=== PATIENT | female | born 1985 | race Caucasian/White ===

== ENCOUNTER → 2017-01-27 | Outpatient (CLI) | payer OTHER ==
[~2017-01-27] MED LIST: ACHD5005 PO; CPR500T PO; CYCL10TA9 PO; DCS100C PO; HORMONE; HYDR-34 PO; HYOS0.1216 PO; IBUP-15 PO; LEUP7.5D2 IM; MTR250T PO; NAPR-243 PO; NF-ESTR1.5 PO; NORE5TAB5 PO; PEG250PW PO; TRM50T PO
--- NOTE | 2017-01-27 19:53 | Diagnostic Imaging Report ---
Digital mammogram bilateral diagnostic with tomosynthesis. INDICATION: Right breast lump. The current study was also evaluated with a Computer Aided Detection (CAD) system. This is the patient's baseline study. At this time, she does complain of a lump in the upper-outer aspect of the right breast. FINDINGS: A marker is placed in the area of concern. There is no primary or secondary sign of malignancy in this area. Even so, I would recommend that an ultrasound of this area of the breast be performed for further study. There are scattered fibroglandular densities in both breasts which could obscure a lesion. There is no primary or secondary sign of malignancy noted. The tomographic views also fail to show any sign of malignancy. IMPRESSION: There is no evidence of malignancy. In particular, there is no abnormality in the area of the patient's palpable mass in the upper-outer aspect of the right breast. Ultrasound will be recommended for further study. ACR BI-RADS Category 0: Incomplete. (Needs additional imaging evaluation). Result letter will be mailed to the patient. Note: At least 10% of breast cancer is not imaged by mammography. Dictated by: Dictated on workstation # [id number]
--- NOTE | 2017-01-27 20:11 | Diagnostic Imaging Report ---
INDICATION: Right breast lump. EXAMINATION: Ultrasound of the right breast. FINDINGS: By history, the patient had a palpable abnormality in the upper outer aspect of the right breast. The diagnostic mammogram performed earlier today failed to show any sign of malignancy in this area. On this study, there is no discrete solid or cystic mass. I suspect that the palpable abnormality may be secondary to fibroglandular tissue alone. However, if clinical concern regarding an underlying abnormality persists, then biopsy should still be considered. IMPRESSION: There is no evidence for malignancy or for a cyst. Recommendations as above. ACR BI-RADS Category 1: Negative. Result letter will be mailed to the patient. Note: At least 10% of breast cancer is not imaged by mammography. Dictated by: Dictated on workstation # [id number]
== END ==
LOC: RAD 07:53
PROVIDERS: ATTEND Obstetrics & Gynecology
DX: N63 Unspecified lump in breast (principal)
CPT/HCPCS: 77066

== ENCOUNTER → 2018-09-14 | Outpatient (CLI) | payer OTHER ==
--- NOTE | 2018-09-14 18:08 | Diagnostic Imaging Report ---
PROCEDURE: CT urinary tract, rule out kidney stone. TECHNIQUE: Multiple contiguous axial images were obtained through the abdomen and pelvis without the use of intravenous contrast. Auto Exposure Controls were utilized during the CT exam to meet ALARA standards for radiation dose reduction. INDICATION: Hematuria, right flank pain, right kidney stone, previous hysterectomy, cholecystectomy appendectomy and . COMPARISON STUDY: CT of chest, abdomen and pelvis from 2015. FINDINGS: The lungs are clear. The gallbladder is absent. The liver, spleen, pancreas and adrenal glands appear normal. 1-2 mm calculi is present in the upper pole of the left kidney. 3 mm calculi is present in the mid upper pole of the right kidney. No hydronephrosis or inflammation is present. No calculi are present in the ureters or urinary bladder. There is no inflammation of the kidneys. Bowel loops demonstrate mildly increased stool load. No obstruction or inflammatory changes are present. The osseous structures are normal. IMPRESSION: 1. There is an increased stool load, possible constipation. 2. Small bilateral renal calculi are present without inflammation or obstruction. Dictated by: Dictated on workstation # [id number]
== END ==
LOC: RAD 17:22
PROVIDERS: ATTEND Physician Assistant
DX: N20.0 Calculus of kidney (principal); Z90.710 Acquired absence of both cervix and uterus; Z90.49 Acquired absence of other specified parts of digestive tract
CPT/HCPCS: 74176

== ENCOUNTER 2020-04-04 14:30 | Emergency (ER) | payer OTHER ==
[~2020-04-04] VITALS: Ht 152.4 cm; Wt 58.9 kg
[2020-04-04 16:24] LABS: BASOPHILS % (AUTO) 0 % (0-10); EOSINOPHILS # (AUTO) 0.3 10^3/uL (0.0-0.3); EOSINOPHILS % (AUTO) 4 % (0-10); HEMATOCRIT 38 % (35-52); HEMOGLOBIN 12.2 g/dL (11.5-16.0); LYMPHOCYTES # (AUTO) 2.3 10^3/uL (1.0-4.0); LYMPHOCYTES % (AUTO) 33 % (12-44); MEAN CORPUSCULAR HEMOGLOBIN 28 pg (25-34); MEAN CORPUSCULAR HGB CONC 32 g/dL (32-36); MEAN CORPUSCULAR VOLUME 87 fL (80-99); MEAN PLATELET VOLUME 10.5 fL (9.0-12.2); MONOCYTES # (AUTO) 0.5 10^3/uL (0.0-1.0); MONOCYTES % (AUTO) 7 % (0-12); NEUTROPHILS # (AUTO) 3.7 10^3/uL (1.8-7.8); NEUTROPHILS % (AUTO) 53 % (42-75); PLATELET COUNT 269 10^3/uL (130-400)
[2020-04-04 16:29] LABS: CHLORIDE 105 MMOL/L (98-107); POTASSIUM 3.7 MMOL/L (3.6-5.0); PROTHROMBIN TIME PATIENT 13.1 SEC (12.2-14.7); SODIUM 137 MMOL/L (135-145)
[2020-04-04 16:30] LABS: CALCIUM 9.1 MG/DL (8.5-10.1)
[2020-04-04 16:31] LABS: GLUCOSE 93 MG/DL (70-105)
[2020-04-04 16:32] LABS: TOTAL PROTEIN 6.9 GM/DL (6.4-8.2)
[2020-04-04 16:33] LABS: CARBON DIOXIDE 23 MMOL/L (21-32)
[2020-04-04 16:34] LABS: BILIRUBIN,TOTAL 0.3 MG/DL (0.1-1.0)
[2020-04-04 16:35] LABS: ALKALINE PHOSPHATASE 67 U/L (40-136); CREATININE SERUM 0.77 MG/DL (0.60-1.30); GFR ESTIMATED > 60
[2020-04-04 16:36] LABS: BUN/CREATININE RATIO 16
[2020-04-04 16:38] LABS: ALANINE AMINOTRANSFERASE 12 U/L (0-55); MAGNESIUM 2.3 MG/DL (1.6-2.4)
--- NOTE | 2020-04-04 17:11 | Diagnostic Imaging Report ---
EXAM: Chest 1 view, AP/PA only. INDICATION: Chest pain. COMPARISON: CT chest 04/06/2015. FINDINGS: Normal heart size and central pulmonary vascularity. Calcified granulomas in both lungs. No new focal pulmonary opacity. No pleural effusion or pneumothorax. No acute osseous finding. IMPRESSION: No acute cardiopulmonary finding. Dictated by: Dictated on workstation # [id number]
--- NOTE | 2020-04-04 17:37 | ED General ---
General Chief Complaint: Respiratory Problems Stated Complaint: SOA Nursing Triage Note: PT AMB TO ROOM 05. REPORTS SOA AND DIZZINESS X'S 4 WEEK. PT WAS POSITIVE COVID 03/09/2020. Nursing Sepsis Screen: No Definite Risk Source of Information: Patient Exam Limitations: No Limitations History of Present Illness Date Seen by Provider: Apr 04, 2020 Time Seen by Provider: 15:25 Initial Comments This 34-year-old woman presents to the emergency room with complaints of shortness of breath, dizziness, palpitations, subtle chest pain, headache, and f atigue. She has been experiencing some combination of these symptoms since being diagnosed with COVID-19 about 4 weeks ago. Symptoms have not dissipated as she believes they should. She has had intermittent fever up until a few days ago. Vital signs are unremarkable. Allergies and Home Medications Allergies Coded Allergies: Aren Known Allergies (Verified Allergy, Unknown, 05/09/06) Home Medications Azithromycin 250 Mg Tablet, 250 MG PO UD TAKE 2 TABLETS ON DAY ONE THEN TAKE 1 TABLET DAILY FOR FOUR MORE DAYS Prescribed by: JE LOPES on 04/04/20 1738 Cyclobenzaprine HCl 10 Mg Tablet, 10 MG PO Q8H PRN for SPASMS Prescribed by: GLADYS CHÁVEZ on 04/06/15 2249 Estropipate 1.5 Mg Tab, 1.5 TAB PO DAILY, (Reported) Patient Home Medication List Home Medication List Reviewed: Yes Review of Systems Review of Systems Constitutional: see HPI EENTM: no symptoms reported Respiratory: see HPI Cardiovascular: see HPI Gastrointestinal: no symptoms reported Genitourinary: no symptoms reported : No Musculoskeletal: no symptoms reported Skin: no symptoms reported Psychiatric/Neurological: See HPI Hematologic/Lymphatic: No Symptoms Reported Immunological/Allergic: no symptoms reported Past Prrfiok-Pmgovp-Owpaav Hx Past Med/Social Hx: Reviewed Nursing Past Med/Soc Hx Patient Social History Alcohol Use: Denies Use Recreational Drug Use: No Smoking Status: Never a Smoker Recent Foreign Travel: No Contact w/Someone Who Travel: No Recent Infectious Disease Expo: No Recent Hopitalizations: Yes (labor and delivery, gallbladder surgery) Seasonal Allergies Seasonal Allergies: No Past Medical History Surgeries: Yes Appendectomy, Section, Gallbladder, Hysterectomy Respiratory: No Cardiac: No Neurological: Yes Headaches /Migraines : No Reproductive Disorders: Yes (ENDOMETROSIS) Female Reproductive Disorders: Endometriosis Sexually Transmitted Disease: No Gastrointestinal: No Musculoskeletal: No Endocrine: No Cancer: No Psychosocial: No Integumentary: No Blood Disorders: No Family Medical History No Pertinent Family Hx Physical Exam Vital Signs Vital Signs - First Documented 04/04/20 15:23 Temp 36.2 Pulse 90 Resp 24 B/P (MAP) 111/86 (94) Pulse Ox 100 O2 Delivery Room Air Capillary Refill : Less Than 3 Seconds Height, Weight, BMI Height: 5'2" Weight: 120lbs. oz. 54.200825vv; 25.00 BMI Method:Estimated General Appearance: WD/WN, Mild Distress (dyspnea) HEENT: PERRL/EOMI, Normal ENT Inspection, Pharynx Normal Neck: Normal Inspection Respiratory: Lungs Clear, No Accessory Muscle Use, No Respiratory Distress, Other (dyspnea and tachypnea) Cardiovascular: Regular Rate, Rhythm, No Edema, No Murmur Gastrointestinal: Normal Bowel Sounds, Non Tender, Soft Extremity: Normal Inspection, No Pedal Edema Neurologic/Psychiatric: Alert, Oriented x3, No Motor/Sensory Deficits, Normal Mood/Affect, lip of shank cutter II-XII Norm as Tested Skin: Normal Color, Warm/Dry Progress/Results/Core Measures Suspected Sepsis Recent Fever Within 48 Hours: No Infection Criteria Present: None New/Unexplained Altered Menta: No Sepsis Screen: No Definite Risk SIRS Temperature: Pulse: 90 Respiratory Rate: 24 Laboratory Tests 04/04/20 15:38: White Blood Count 7.0 Blood Pressure 111 /86 Mean: 94 Laboratory Tests 04/04/20 15:38: Creatinine 0.77, INR Comment 1.0, Platelet Count 269, Total Bilirubin 0.3 Results/Orders Lab Results Laboratory Tests Test 04/04/20 15:38 Range/Units White Blood Count 7.0 4.3-11.0 10^3/uL Red Blood Count 4.42 3.80-5.11 10^6/uL Hemoglobin 12.2 11.5-16.0 g/dL Hematocrit 38 35-52 % Mean Corpuscular Volume 87 80-99 fL Mean Corpuscular Hemoglobin 28 25-34 pg Mean Corpuscular Hemoglobin Concent 32 32-36 g/dL Red Cell Distribution Width 12.7 10.0-14.5 % Platelet Count 269 130-400 10^3/uL Mean Platelet Volume 10.5 9.0-12.2 fL Immature Granulocyte % (Auto) 3 % Neutrophils (%) (Auto) 53 42-75 % Lymphocytes (%) (Auto) 33 12-44 % Monocytes (%) (Auto) 7 0-12 % Eosinophils (%) (Auto) 4 0-10 % Basophils (%) (Auto) 0 0-10 % Neutrophils # (Auto) 3.7 1.8-7.8 10^3/uL Lymphocytes # (Auto) 2.3 1.0-4.0 10^3/uL Monocytes # (Auto) 0.5 0.0-1.0 10^3/uL Eosinophils # (Auto) 0.3 0.0-0.3 10^3/uL Basophils # (Auto) 0.0 0.0-0.1 10^3/uL Immature Granulocyte # (Auto) 0.2 H 0.0-0.1 10^3/uL Prothrombin Time 13.1 12.2-14.7 SEC INR Comment 1.0 0.8-1.4 Activated Partial Thromboplast Time 42 H 24-35 SEC D-Dimer < 0.27 0.00-0.49 UG/ML Sodium Level 137 135-145 MMOL/L Potassium Level 3.7 3.6-5.0 MMOL/L Chloride Level 105 98-107 MMOL/L Carbon Dioxide Level 23 21-32 MMOL/L Anion Gap 9 5-14 MMOL/L Blood Urea Nitrogen 12 7-18 MG/DL Creatinine 0.77 0.60-1.30 MG/DL Estimat Glomerular Filtration Rate > 60 BUN/Creatinine Ratio 16 Glucose Level 93 70-105 MG/DL Calcium Level 9.1 8.5-10.1 MG/DL Corrected Calcium 9.1 8.5-10.1 MG/DL Magnesium Level 2.3 1.6-2.4 MG/DL Total Bilirubin 0.3 0.1-1.0 MG/DL Aspartate Amino Transf (AST/SGOT) 14 5-34 U/L Alanine Aminotransferase (ALT/SGPT) 12 0-55 U/L Alkaline Phosphatase 67 40-136 U/L Lactate Dehydrogenase 135 125-220 U/L Myoglobin 19.0 10.0-92.0 NG/ML Troponin I < 0.028 <0.028 NG/ML C-Reactive Protein High Sensitivity 0.43 0.00-0.50 MG/DL B-Type Natriuretic Peptide 16.9 <100.0 PG/ML Total Protein 6.9 6.4-8.2 GM/DL Albumin 4.0 3.2-4.5 GM/DL Procalcitonin 0.02 <0.10 NG/ML Micro Results Microbiology 04/04/20 Influenza Types A,B Antigen (MARYANA) - Final, Complete My Orders Orders - JE DENSON MD Cbc With Automated Diff (04/04/20 16:13) Magnesium (04/04/20 16:13) Chest 1 View, Ap/Pa Only (04/04/20 16:13) Ekg Tracing (04/04/20 16:13) Comprehensive Metabolic Panel (04/04/20 16:13) Myoglobin Serum (04/04/20 16:13) Protime With Inr (04/04/20 16:13) Partial Thromboplastin Time (04/04/20 16:13) O2 (04/04/20 16:13) Monitor-Rhythm Ecg Trace Only (04/04/20 16:13) Ed Iv/Invasive Line Start (04/04/20 16:13) BNP (04/04/20 16:13) Fibrin Degradation Products (04/04/20 16:13) Troponin I (04/04/20 16:13) Procalcitonin (Pct) (04/04/20 16:13) Hs C Reactive Protein (04/04/20 16:13) LDH (04/04/20 16:13) Influenza A And B Antigens (04/04/20 16:13) Vital Signs/I&O 04/04/20 04/04/20 15:23 18:16 Temp 36.2 37.0 Pulse 90 88 Resp 24 20 B/P (MAP) 111/86 (94) 120/85 Pulse Ox 100 98 O2 Delivery Room Air Room Air Capillary Refill : Less Than 3 Seconds Blood Pressure Mean: 94 Progress Note : Progress Note Workup was unremarkable and patient was given reassurance. As a precaution due to persistent and even perhaps worsening dyspnea, she was prescribed azithromycin. A work note was provided. ECG Initial ECG Impression Date: Apr 04, 2020 Initial ECG Impression Time: 15:25 Initial ECG Rate: 88 Initial ECG Rhythm: Normal Sinus Initial ECG Intervals: Normal Initial ECG Impression: Normal Comment Normal sinus rhythm with no ST elevation or depression. No abnormal intervals or axis deviation. Diagnostic Imaging Diagonstic Imaging: Xray Plain Films/CT/US/NM/MRI: chest Comments chest x-ray viewed by me and report reviewed. See report below: NAME: SHARON SANABRIA REC#: [id number] PT STATUS: REG ER : 1985 PHYSICIAN: JE DENSON MD ADMIT DATE: 04/04/20/ER Draft Date of Exam:04/04/20 CHEST 1 VIEW, AP/PA ONLY EXAM: Chest 1 view, AP/PA only. INDICATION: Chest pain. COMPARISON: CT chest 04/06/2015. FINDINGS: Normal heart size and central pulmonary vascularity. Calcified granulomas in both lungs. No new focal pulmonary opacity. No pleural effusion or pneumothorax. No acute osseous finding. IMPRESSION: No acute cardiopulmonary finding. Dictated on workstation # [id number] Dict: 04/04/20 1707 Trans: 04/04/20 1711 [facility] [id number] Interpreted by: BERYL RAMOS MD Departure Impression Primary Impression: COVID-19 Additional Impressions: Dyspnea Qualified Codes: R06.00 - Dyspnea, unspecified Palpitations Disposition: HOME, SELF-CARE Condition: Stable Departure-Patient Inst. Decision time for Depature: 17:34 Referrals: [facility] (PCP) Primary Care Physician ROSEMARY SHEA (Family) Primary Care Physician Patient Instructions: COVID19 Add. Discharge Instructions: Drink plenty of clear liquids and get plenty of rest. Change positions often to help with your breathing. Complete your antibiotics as prescribed. Follow-up with your primary care provider by phone on Monday. Call or return to the emergency room if you have any further problems or concerns. All discharge instructions reviewed with patient and/or family. Voiced understanding. Scripts Azithromycin (Azithromycin) 250 Mg Tablet 250 MG PO UD, #6 TAB TAKE 2 TABLETS ON DAY ONE THEN TAKE 1 TABLET DAILY FOR FOUR MORE DAYS Prov: JE DENSON MD 04/04/20 Work/School Note: Work Release Form Date Seen in the Emergency Department: Apr 04, 2020 Return to Work: Apr 09, 2020 Other Restrictions Listed Below: Return only if free of fever 72 hours without fever reducing medications. JE DENSON MD Apr 04, 2020 17:37
[2020-04-04] MEDS ORDERED: AZIT250T12 PO (17:38)
[2020-04-04 18:16] VITALS: BP 120/85
== END 2020-04-04 18:16 | disposition home or self-care (01) ==
LOC: EDUNIT# 14:30 → ER 14:32
DX: U07.1 COVID-19 (principal); R06.00 Dyspnea, unspecified; R00.2 Palpitations
CPT/HCPCS: 36415; 71045; 80053; 83615; 83735; 83874; 83880; 84145; 84484; 85025; 85379; 85610; 85730; 86141; 87804; 93005; 93041

== ENCOUNTER 2021-01-06 10:33 | Outpatient (CLI) | payer OTHER ==
[~2021-01-06] VITALS: Ht 152.4 cm; Wt 54.5 kg
[~2021-01-06 10:33] MED LIST changes: +AZIT250T12 PO
[2021-01-06] MEDS ORDERED: ESTR0.62 PO (14:09)
[2021-01-06] MEDS ORDERED: PROP20TA5 PO ×2 (14:09)
[2021-01-06] MEDS ORDERED: AMPH20TA2 PO (14:09)
== END 2021-01-06 15:12 | disposition home or self-care (01) ==
LOC: PREOP 10:33
PROVIDERS: ATTEND Surgery
DX: Z01.818 Encounter for other preprocedural examination (principal)

== ENCOUNTER 2021-01-08 10:02 | Day surgery (SDC) | payer OTHER ==
--- NOTE | 2021-01-07 06:24 | HISTORY AND PHYSICAL ---
DATE OF SERVICE: DATE OF ADMISSION: 01/08/2021. ATTENDING AUTOMOTIVE BRAKE TECHNICIAN: Nati Alex APRN. HISTORY OF PRESENT ILLNESS: The patient is a 35-year-old female, who has had two episodes of rectal bleeding as well as associated perianal pain. She states that her first episode was in 03/2020, which persisted for five to seven days and then stopped on its own. She then had another episode two weeks ago and again states that she would have intermittent episodes of red blood, followed by a clotted maroon-blood and this was again associated with perianal pain and abdominal soreness. She does report a history of constipation; however, during these episodes, she would have more loose stools. She did have some laboratory work done with an antinuclear antibody slightly elevated at 1.8. She does not know any family history of inflammatory bowel disease. PAST MEDICAL HISTORY: History of endometriosis, migraine headaches, history of gastroesophageal reflux disease, and history of H. pylori in 2016. PAST SURGICAL HISTORY: section x2 in 2001 and 2007, laparoscopic cholecystectomy in 2001, appendectomy, and total hysterectomy in 2010. ALLERGIES: No known drug allergies. MEDICATIONS: Adderall 20 mg daily, propranolol 20 mg daily, and Premarin 0.625 mg daily. SOCIAL HISTORY: Negative smoke and negative alcohol. FAMILY HISTORY: Noncontributory. REVIEW OF SYSTEMS: A well-nourished female, in no acute distress. She is not experiencing any shortness of breath or difficulty breathing. No chest pain, palpitations, and no diaphoresis. No fever, chills, no recent inadvertent weight loss. PHYSICAL EXAMINATION: VITAL SIGNS: Stable, current weight 128.0 pounds and height 5 feet 0 inches. CHEST: Clear. Good breath sounds bilaterally. HEART: Regular, no murmurs. EXTREMITIES: No lower extremity edema and negative Homans sign. HEENT: No scleral icterus. NECK: No cervical lymphadenopathy. ABDOMEN: Soft, nontender, and nondistended. SKIN: Warm and dry. ASSESSMENT AND PLAN: A 35-year-old female with intermittent episodes of rectal bleeding as well as perianal pain. We will proceed with a colonoscopy and biopsies if appropriately and look for any signs of potential inflammatory bowel disease. Job ID: [id number] DocumentID: [id number] Dictated Date: 01/05/2021 17:38:42 Iron Handler Date: 01/05/2021 18:08:27 Dictated By: BERE MCADAMS MD
[~2021-01-08] VITALS: Ht 152.4 cm; Wt 54.5 kg
[~2021-01-08 10:02] MED LIST changes: +AMPH20TA2 PO; +ESTR0.62 PO; +PROP20TA5 PO
[2021-01-08] MEDS ORDERED: LACTATED RINGERS 1,000 ML IV STA (10:05)
[2021-01-08] MEDS ORDERED: LACTATED RINGERS 1,000 ML IV ONE (10:09)
[2021-01-08] MEDS ORDERED: LIDOCAINE JELLY 2% 6 ML SYRINGE MM PRN (10:15)
[2021-01-08 10:22] VITALS: BP 114/80
[2021-01-08] MEDS ORDERED: ONDANSETRON 4 MG/2 ML (SDV) Z0FRAN ONE (10:24)
--- NOTE | 2021-01-08 10:54 | Progress Note-Pre Operative ---
Pre-Operative Progress Note H&P Reviewed The H&P was reviewed, patient examined and no changes noted. Date Seen by Provider: Jan 08, 2021 Time Seen by Provider: 10: Date H&P Reviewed: Jan 08, 2021 Time H&P Reviewed: : Pre-Operative Diagnosis: rectal bleed, perianal pain. BERE MCADAMS MD Jan 08, 2021 10:54
--- NOTE | 2021-01-08 10:55 | Discharge Inst-Surgical ---
D/C Lap Instructions-ABBE Follow Up Activity as tolerated High Fiber Diet 25g or more per day Avoid Alcohol, Caffeine, Spicy [place] and Acid foods. Drink 64 fluid oz or more of fluids per day. Symptoms to Report: Fever over 101 degree F, Nausea/Vomiting If any problems/questions: Contact your physician or go to Emergency Room BERE MCADAMS MD Jan 08, 2021 10:55
[2021-01-08] MEDS ORDERED: ONDANSETRON 4 MG/2 ML (SDV) Z0FRAN IVP PRN (11:00)
[2021-01-08] MEDS ORDERED: MIDAZOLAM 2 MG/2 ML (VERSED) VIAL ONE (11:14)
[2021-01-08] MEDS ORDERED: proPOfol 200 MG/20 ML (DIPRIVAN) VIAL IV ONE (11:14)
[2021-01-08 12:25] VITALS: BP 104/62
[2021-01-08 12:30] VITALS: BP_SYST 100; BP_SYST 98; BP_DIAS 62; BP_DIAS 68
--- NOTE | 2021-01-08 12:40 | Progress Note-Post Operative ---
Post-Operative Progess Note Surgeon (s)/Power Washer (s) Surgeon BERE MCADAMS MD Power Washer: none Pre-Operative Diagnosis rectal bleed, perianal pain. Post-Operative Diagnosis mild chronic stage 2 ext and int hemorrhoids, mild friability rectal mucosa. Procedure & Operative Findings Date of Procedure 01/08/21 Procedure Performed/Findings colonoscopy with bx. Anesthesia Type mac Estimated Blood Loss Estimated blood loss (mL): minimal Specimens/Packing Specimens Removed rectum BERE MCADAMS MD Jan 08, 2021 12:40
[2021-01-08 12:54] VITALS: BP 103/71
[2021-01-08 12:55] VITALS: BP 103/71
--- NOTE | 2021-01-08 15:40 | OPERATIVE REPORT ---
DATE OF SERVICE: 01/08/2021 ATTENDING PRIMARY CARE CLINCIAN: Nati Alex APRN. PREOPERATIVE DIAGNOSES: Rectal bleeding and perianal pain. POSTOPERATIVE DIAGNOSES: Mild chronic stage II external and internal hemorrhoids, slightly friable rectal mucosa. No signs of any active inflammation. Remainder of the colon was normal. PROCEDURE: Colonoscopy with biopsy. SURGEON: Bere Mcadams MD. ANESTHESIA: Monitored anesthesia care. ESTIMATED BLOOD LOSS: Minimal. FINDINGS: Mild chronic stage II external and internal hemorrhoids, slightly friable rectal mucosa. No signs of any active inflammation. Remainder of the colon was normal. DISPOSITION: The patient tolerated the procedure well. INDICATIONS: The patient is a 35-year-old female who has had 2 episodes of rectal bleeding associated with perianal pain. Her first episode was in 03/2020 and persisted for 5 to 7 days and stopped on its own. Then she had another episode 2 weeks ago and again had intermittent red blood, followed by clotted maroon blood and this was associated with perianal pain as well as a slight abdominal soreness. She does report a history of constipation; however, during these episodes of bleeding, she would have more loose stools. The only laboratory abnormality was an antinuclear antibody slightly elevated at 1.8. She does not report any family history of inflammatory bowel disease as well as no colon cancer. DESCRIPTION OF PROCEDURE: The patient was brought to the endoscopy suite, laid in left lateral decubitus position. After adequate IV pain and sedative medications and monitored anesthesia care. Digital rectal examination revealed chronic stage II external and internal hemorrhoids, not actively edematous, nor inflamed and no bleeding. Normal suture tone was felt and there were no palpable masses. The endoscope was then intubated and anus and rectum gently insufflated. There was slightly friable rectal mucosa; however, there was no identifiable mucosal inflammatory changes. Biopsies were taken of the rectum with forceps with visualization of good hemostasis. The endoscope was then advanced through the sigmoid colon where no diverticulosis identified. We then proceeded through the remainder of the descending, transverse and ascending colon to the cecum. These segments were normal. There were no mucosal inflammatory changes as well as no polyps or any neoplasms identified. The endoscope was then slowly withdrawn while taking a second look and suctioning of residual air with no additional findings. The patient tolerated the procedure well. We will recommend the necessary lifestyle and diet accommodation including the incorporation of a fiber supplement, which should equal or exceed 25 grams daily as well as significant amounts of water to promote soft stools on a daily basis. If she continues to have some symptomatology, this may warrant further investigation. Job ID: [id number] DocumentID: [id number] Dictated Date: 01/08/2021 12:27:16 Sign Shop Supervisor Date: 01/08/2021 15:39:13 Dictated By: BERE MCADAMS MD
== END 2021-01-08 12:58 | disposition home or self-care (01) ==
LOC: ENDO 10:02
PROVIDERS: ATTEND Surgery
DX: K64.1 Second degree hemorrhoids (principal); K62.89 Other specified diseases of anus and rectum; Z79.899 Other long term (current) drug therapy; Z90.49 Acquired absence of other specified parts of digestive tract

== ENCOUNTER 2021-02-10 13:32 | Outpatient (RCR) | payer OTHER ==
[~2021-02-10 13:32] MED LIST changes: +CYCL10TA25 PO; -CYCL10TA9 PO
[2021-02-10 13:54] LABS: ABSOLUTE RETIC # 85 10e9/uL (24-90); BASOPHILS % (AUTO) 0 % (0-10); EOSINOPHILS # (AUTO) 0.4 10^3/uL (0.0-0.3); EOSINOPHILS % (AUTO) 5 % (0-10); HEMATOCRIT 40 % (35-52); HEMOGLOBIN 12.7 g/dL (11.5-16.0); LYMPHOCYTES % (AUTO) 24 % (12-44); MEAN CORPUSCULAR HEMOGLOBIN 28 pg (25-34); MEAN CORPUSCULAR HGB CONC 32 g/dL (32-36); MEAN CORPUSCULAR VOLUME 87 fL (80-99); MEAN PLATELET VOLUME 10.5 fL (9.0-12.2); MONOCYTES # (AUTO) 0.3 10^3/uL (0.0-1.0); MONOCYTES % (AUTO) 4 % (0-12); NEUTROPHILS # (AUTO) 5.5 10^3/uL (1.8-7.8); NEUTROPHILS % (AUTO) 66 % (42-75); PLATELET COUNT 272 10^3/uL (130-400); RETICULOCYTE % 1.86 % (0.50-2.40); WHITE BLOOD COUNT 8.3 10^3/uL (4.3-11.0)
[2021-02-10 14:10] LABS: ALBUMIN 4.2 GM/DL (3.2-4.5); BILIRUBIN,TOTAL 0.3 MG/DL (0.1-1.0); CALCIUM 9.8 MG/DL (8.5-10.1); CREATININE SERUM 0.72 MG/DL (0.60-1.30); POTASSIUM 3.9 MMOL/L (3.6-5.0); TOTAL PROTEIN 7.4 GM/DL (6.4-8.2)
== END 2021-05-11 | disposition home or self-care (01) ==
LOC: ONC 13:32
PROVIDERS: ATTEND Internal Medicine Hematology & Oncology
DX: D72.820 Lymphocytosis (symptomatic) (principal); E55.9 Vitamin D deficiency, unspecified; M25.40 Effusion, unspecified joint; R79.9 Abnormal finding of blood chemistry, unspecified
CPT/HCPCS: 80053; 83615; 85025; 85045; G0463; 99214

== ENCOUNTER 2022-07-01 15:46 | Emergency (ER) | payer OTHER ==
[~2022-07-01] VITALS: Ht 152 cm; Wt 56.6 kg
[2022-07-01] MEDS ORDERED: ONDANSETRON 4 MG (ZOFRAN) ORAL DISSOLVE TAB SL STA (16:07)
--- NOTE | 2022-07-01 16:09 | ED Chest Pain ---
General Chief Complaint: Chest Pain Stated Complaint: CHEST PAIN Nursing Triage Note: PT AMBULATORY TO ER WITH FAMILY. REPORTS CHEST PAIN ONSET APPROX 1200 TODAY. DESCRIBES A PRESSURE SENSATION, RADIATES INTO HER UPPER BACK. PAIN WORSE WITH INSPIRATION. PT DID TAKE TYLENOL EARLIER. PT INITIALLY PRESENTED TO CLINIC, REFERRED TO ER FOR FURTHER EVAL. Source: patient Exam Limitations: no limitations History of Present Illness Date Seen by Provider: Jul 01, 2022 Time Seen by Provider: 15:55 Allergies and Home Medications Allergies Coded Allergies: NKANo Known Allergies (Verified Allergy, Unknown, 05/09/06) Patient Home Medication List Dextroamphetamine/Amphetamine (Adderall 20 mg Tablet) 20 Mg Tablet, 20 MG PO DAILY, (Reported) Entered as Reported by: YESSI PUCKETT on 01/06/21 140 Estrogens, Conjugated (Premarin) 0.625 Mg Tablet, 0.625 MG PO DAILY, (Reported) Entered as Reported by: YESSI PUCKETT on 01/06/21 140 Propranolol HCl (Propranolol HCl) 20 Mg Tablet, 20 MG PO AM, (Reported) Entered as Reported by: YESSI PUCKETT on 01/06/211408 Propranolol HCl (Propranolol HCl) 20 Mg Tablet, 30 MG PO HS, (Reported) Entered as Reported by: YESSI PUCKETT on 01/06/211408 Past Znvkfsd-Rrblez-Lrznkw Hx Patient Social History Tobacco Use?: No Use of E-Cig and/or Vaping dev: No Substance use?: No Alcohol Use?: No Pt feels they are or have been: No Immunizations Up To Date First/Initial COVID19 Vaccinat: RECEIVED, UNK WHEN Second COVID19 Vaccination Nahun: RECEIVED, UNK WHEN COVID19 Vaccine Animal Health Technician: DINA Seasonal Allergies Seasonal Allergies: Yes Past Medical History Surgeries: Yes Appendectomy, Section, Gallbladder, Hysterectomy Respiratory: No Cardiac: No Neurological: Yes Headaches /Migraines Reproductive Disorders: Yes (ENDOMETROSIS) Female Reproductive Disorders: Endometriosis [employer] History: Hysterectomy Sexually Transmitted Disease: No Genitourinary: Yes (KIDNEY STONES 2019) Kidney Stones Gastrointestinal: No Musculoskeletal: No Endocrine: No HEENT: No Hearing Impairment: Denies Cancer: No Psychosocial: Yes ADD/ADHD Integumentary: No Blood Disorders: No Family Medical History No Pertinent Family Hx Physical Exam Vital Signs Vital Signs - First Documented 07/01/22 15:55 Temp 36.5 Pulse 70 Resp 18 B/P (MAP) 150/98 (115) Pulse Ox 100 O2 Delivery Room Air Capillary Refill : Height, Weight, BMI Height: 5'2" Weight: 120lbs. oz. 54.016244og; 24.00 BMI Method:Estimated Progress/Results/Core Measures Results/Orders Lab Results Laboratory Tests Test 07/01/22 16:04 Range/Units White Blood Count 12.1 H 4.3-11.0 10^3/uL Red Blood Count 4.52 3.80-5.11 10^6/uL Hemoglobin 13.2 11.5-16.0 g/dL Hematocrit 39 35-52 % Mean Corpuscular Volume 85 80-99 fL Mean Corpuscular Hemoglobin 29 25-34 pg Mean Corpuscular Hemoglobin Concent 34 32-36 g/dL Red Cell Distribution Width 11.9 10.0-14.5 % Platelet Count 301 130-400 10^3/uL Mean Platelet Volume 10.4 9.0-12.2 fL Immature Granulocyte % (Auto) 1 % Neutrophils (%) (Auto) 77 H 42-75 % Lymphocytes (%) (Auto) 17 12-44 % Monocytes (%) (Auto) 5 0-12 % Eosinophils (%) (Auto) 1 0-10 % Basophils (%) (Auto) 0 0-10 % Neutrophils # (Auto) 9.4 H 1.8-7.8 10^3/uL Lymphocytes # (Auto) 2.0 1.0-4.0 10^3/uL Monocytes # (Auto) 0.5 0.0-1.0 10^3/uL Eosinophils # (Auto) 0.1 0.0-0.3 10^3/uL Basophils # (Auto) 0.0 0.0-0.1 10^3/uL Immature Granulocyte # (Auto) 0.1 0.0-0.1 10^3/uL Prothrombin Time 13.5 12.2-14.7 SEC INR Comment 1.0 0.8-1.4 Activated Partial Thromboplast Time 51 H 24-35 SEC D-Dimer < 0.22 0.00-0.49 UG/ML Sodium Level 135 135-145 MMOL/L Potassium Level 3.4 L 3.6-5.0 MMOL/L Chloride Level 104 98-107 MMOL/L Carbon Dioxide Level 19 L 21-32 MMOL/L Anion Gap 12 5-14 MMOL/L Blood Urea Nitrogen 13 7-18 MG/DL Creatinine 0.73 0.60-1.30 MG/DL Estimat Glomerular Filtration Rate 107 BUN/Creatinine Ratio 18 Glucose Level 114 H 70-105 MG/DL Calcium Level 10.2 H 8.5-10.1 MG/DL Corrected Calcium 10.0 8.5-10.1 MG/DL Magnesium Level 2.1 1.6-2.4 MG/DL Total Bilirubin 0.3 0.1-1.0 MG/DL Aspartate Amino Transf (AST/SGOT) 14 5-34 U/L Alanine Aminotransferase (ALT/SGPT) 13 0-55 U/L Alkaline Phosphatase 64 40-136 U/L Myoglobin 15.4 10.0-92.0 NG/ML Troponin I < 0.028 <0.028 NG/ML Total Protein 7.6 6.4-8.2 GM/DL Albumin 4.3 3.2-4.5 GM/DL My Orders Orders - JE DENSON MD Cbc With Automated Diff (07/01/22 16:06) Magnesium (07/01/22 16:06) Chest 1 View, Ap/Pa Only (07/01/22 16:06) Ekg Tracing (07/01/22 16:06) Comprehensive Metabolic Panel (07/01/22 16:06) Myoglobin Serum (07/01/22 16:06) Protime With Inr (07/01/22 16:06) Partial Thromboplastin Time (07/01/22 16:06) O2 (07/01/22 16:06) Monitor-Rhythm Ecg Trace Only (07/01/22 16:06) Lipid Panel (07/02/22 06:00) Ed Iv/Invasive Line Start (07/01/22 16:06) Troponin I [place] (07/01/22 16:06) Ondansetron Oral Dissolve Tab (Zofran (07/01/22 16:07) Lidocaine 2% Viscous 15 Ml (Xylocaine Vi (07/01/22 16:15) Antacid Suspension (Mylanta Suspension (07/01/22 16:15) Fibrin Degradation Products (07/01/22 16:57) Nitroglycerin 0.4 Mg Btl 25's (Nitrostat (07/01/22 17:15) Fentanyl Inj (Sublimaze Injection) (07/01/22 17:30) Ct Angio Chest W (R/O Pe) (07/01/22 17:21) Iohexol Injection (Omnipaque 350 Mg/Ml 1 (07/01/22 17:30) Ns (Ivpb) (Sodium Chloride 0.9% Ivpb Bag (07/01/22 17:30) Ketorolac Injection (Toradol Injection) (07/01/22 19:00) Troponin I Ros (07/01/22 18:50) Medications Given in ED Current Medications Medications Dose Ordered Sig/Stan Route Start Time Stop Time Status Last Admin Dose Admin Al Hydrox/Mg Hydrox/Simethicone 30 ml ONCE ONCE PO 07/01/22 16:15 07/01/22 16:16 DC 07/01/22 16:16 30 ML Fentanyl Citrate 50 mcg ONCE ONCE IVP 07/01/22 17:30 07/01/22 17:31 DC 07/01/22 17:34 50 MCG Iohexol 100 ml ONCE ONCE IV 07/01/22 17:30 07/01/22 17:31 DC 07/01/22 17:46 65 ML Lidocaine HCl 15 ml ONCE ONCE PO 07/01/22 16:15 07/01/22 16:16 DC 07/01/22 16:15 15 ML Nitroglycerin 0.4 mg UD PRN SL 07/01/22 17:15 07/01/22 17:11 0.4 MG Sodium Chloride 100 ml ONCE ONCE IV 07/01/22 17:30 07/01/22 17:31 DC 07/01/22 17:46 70 ML Vital Signs/I&O 07/01/22 07/01/22 07/01/22 07/01/22 15:55 16:33 16:33 18:07 Temp 36.5 Pulse 70 75 55 Resp 18 B/P (MAP) 150/98 (115) 127/91 (103) 135/77 (96) Pulse Ox 100 98 98 94 O2 Delivery Room Air Room Air Room Air Room Air Blood Pressure Mean: 115 Progress Progress Note : Time: 18:48 Progress Note Cardiac panel work-up was pursued including CBC, CMP, troponin, D-dimer, chest x-ray, and EKG. This work-up was unremarkable. A trial treatment of GI cocktail was given without improvement in pain. Due to the sudden severe onset and associated symptoms as well as radiation of pain into the back, CT angiogram was deemed appropriate. This was discussed with patient. She elected to proceed with CT angiogram which was unremarkable. Patient was treated with fentanyl prior to CT to help her relax during the study. After CT results were reviewed, Toradol was ordered. A repeat troponin is being drawn now. Patient will be discharged home as long as the repeat troponin is negative. Initial ECG Impression Date: Jul 01, 2022 Initial ECG Impression Time: 15:59 Initial ECG Rate: 71 Initial ECG Rhythm: Normal Sinus Initial ECG Intervals: Normal Initial ECG Impression: Normal Comment Normal sinus rhythm with no ST elevation or depression. No abnormal intervals or axis deviation. Diagnostic Imaging Diagonstic Imaging: Xray Plain Films/CT/US/NM/MRI: chest Comments Chest x-ray viewed by me and report reviewed. See report below: NAME: SHARON CAMEJO [facility] REC#: [id number] PT STATUS: REG ER : 1985 PHYSICIAN: JE DENSON MD ADMIT DATE: 07/01/22/ER Signed Date of Exam:07/01/22 CHEST 1 VIEW, AP/PA ONLY INDICATION: Chest pain. EXAMINATION: Portable chest, 4:15 p.m. FINDINGS: Heart and mediastinum are normal. Lungs are clear. There are no effusions or pneumothoraces. IMPRESSION: No acute abnormalities in the chest. Dictated by: Dictated on workstation # [id number] Dict: 07/01/22 1631 Trans: 07/01/22 1741 [id number] Interpreted by: GLADYS METZGER MD Electronically signed by: GLADYS METZGER MD 07/01/22 174 Diagonstic Imaging: CT Plain Films/CT/US/NM/MRI: chest Comments CT angiogram of the chest was reviewed by me. No acute abnormalities were appreciated by my interpretation. Radiologist report was also reviewed as below and revealed no acute pathology. NAME: SHARON CAMEJO [facility] REC#: [id number] PT STATUS: REG ER : 1985 PHYSICIAN: JE DENSON MD ADMIT DATE: 07/01/22/ER Draft Date of Exam:07/01/22 CT ANGIO CHEST W (R/O PE) INDICATION: Pressure in the chest with radiation into the upper back. Painful inspiration. EXAMINATION: CTA of the chest from 07/01/2022. TECHNIQUE: All CT scans use one or more of the following dose optimizing techniques: automated exposure control, MA and/or KvP adjustment based on a patient size and exam type, or iterative reconstruction. COMPARISONS: None. FINDINGS: There are no central or proximal segmental pulmonary emboli. The thoracic aorta appears unremarkable. Within the lungs, evidence of old granulomatous disease is noted. Dependent bibasilar atelectasis seen at the lung bases. No suspicious masses appreciated. There are no focal infiltrates. No effusions. No pericardial effusion. No pneumothorax. Visualized upper abdomen is unremarkable for an acute abnormality. There is no acute osseous abnormality. IMPRESSION: 1. No central or proximal segmental pulmonary emboli. 2. Evidence of old granulomatous disease with other incidental findings, as above. No acute abnormality is appreciated. Dictated on workstation # [id number] Dict: 07/01/22 1749 Trans: 07/01/22 1758 [id number] Interpreted by: NY VITALE MD Departure Impression Primary Impression: Atypical chest pain Disposition: HOME, SELF-CARE Condition: Improved Departure-Patient Inst. Decision time for Depature: 18:52 Referrals: CANDE WOODS APRN (PCP) Primary Care Physician Patient Instructions: Chest Pain That Is Not Caused by the Heart (DC) Add. Discharge Instructions: The exact cause of your chest pain is uncertain, but dangerous or life- threatening causes evaluated in the emergency room were all negative. Treat your pain with ibuprofen up to 600 mg every 6 hours as needed and Tylenol (acetaminophen) up to 1000 mg every 6 hours as needed. Follow-up with your primary care provider as soon as possible. Return to the ER if you have worsening symptoms despite following these instructions. All discharge instructions reviewed with patient and/or family. Voiced understanding. JE DENSON MD Jul 01, 2022 16:09
[2022-07-01] MEDS ORDERED: LIDOCAINE 2% VISCOUS 15 ML UDC PO ONE (16:15)
[2022-07-01] MEDS ORDERED: ANTACID SUSP 30 ML UDC (MYLANTA) PO ONE (16:15)
[2022-07-01 16:27] LABS: BASOPHILS % (AUTO) 0 % (0-10); EOSINOPHILS # (AUTO) 0.1 10^3/uL (0.0-0.3); EOSINOPHILS % (AUTO) 1 % (0-10); HEMATOCRIT 39 % (35-52); HEMOGLOBIN 13.2 g/dL (11.5-16.0); LYMPHOCYTES % (AUTO) 17 % (12-44); MEAN CORPUSCULAR HEMOGLOBIN 29 pg (25-34); MEAN CORPUSCULAR HGB CONC 34 g/dL (32-36); MEAN CORPUSCULAR VOLUME 85 fL (80-99); MEAN PLATELET VOLUME 10.4 fL (9.0-12.2); MONOCYTES # (AUTO) 0.5 10^3/uL (0.0-1.0); MONOCYTES % (AUTO) 5 % (0-12); NEUTROPHILS # (AUTO) 9.4 10^3/uL (1.8-7.8); NEUTROPHILS % (AUTO) 77 % (42-75); PLATELET COUNT 301 10^3/uL (130-400); WHITE BLOOD COUNT 12.1 10^3/uL (4.3-11.0)
[2022-07-01 16:30] LABS: ALBUMIN 4.3 GM/DL (3.2-4.5); POTASSIUM 3.4 MMOL/L (3.6-5.0)
[2022-07-01 16:32] LABS: CALCIUM 10.2 MG/DL (8.5-10.1)
[2022-07-01 16:33] LABS: TOTAL PROTEIN 7.6 GM/DL (6.4-8.2)
[2022-07-01 16:34] LABS: PROTHROMBIN TIME PATIENT 13.5 SEC (12.2-14.7)
[2022-07-01 16:35] LABS: BILIRUBIN,TOTAL 0.3 MG/DL (0.1-1.0)
[2022-07-01 16:36] LABS: CREATININE SERUM 0.73 MG/DL (0.60-1.30)
--- NOTE | 2022-07-01 16:38 | Diagnostic Imaging Report ---
INDICATION: Chest pain. EXAMINATION: Portable chest, 4:15 p.m. FINDINGS: Heart and mediastinum are normal. Lungs are clear. There are no effusions or pneumothoraces. IMPRESSION: No acute abnormalities in the chest. Dictated by: Dictated on workstation # [id number]
[2022-07-01 16:40] LABS: MAGNESIUM 2.1 MG/DL (1.6-2.4)
[2022-07-01] MEDS ORDERED: NITROGLYCERIN 0.4 MG SL TABS BTL 25'S SL PRN (17:15)
[2022-07-01] MEDS ORDERED: NS 100 ML (IVPB) BAG IV ONE (17:30)
[2022-07-01] MEDS ORDERED: fentaNYL INJ 100 MCG/2 ML AMP IVP ONE (17:30)
[2022-07-01] MEDS ORDERED: IOHEXOL 350 MG/ML 100 ML (OMNIPAQUE 350) VIAL IV ONE (17:30)
--- NOTE | 2022-07-01 17:58 | Diagnostic Imaging Report ---
INDICATION: Pressure in the chest with radiation into the upper back. Painful inspiration. EXAMINATION: CTA of the chest from 07/01/2022. TECHNIQUE: All CT scans use one or more of the following dose optimizing techniques: automated exposure control, MA and/or KvP adjustment based on a patient size and exam type, or iterative reconstruction. COMPARISONS: None. FINDINGS: There are no central or proximal segmental pulmonary emboli. The thoracic aorta appears unremarkable. Within the lungs, evidence of old granulomatous disease is noted. Dependent bibasilar atelectasis seen at the lung bases. No suspicious masses appreciated. There are no focal infiltrates. No effusions. No pericardial effusion. No pneumothorax. Visualized upper abdomen is unremarkable for an acute abnormality. There is no acute osseous abnormality. IMPRESSION: 1. No central or proximal segmental pulmonary emboli. 2. Evidence of old granulomatous disease with other incidental findings, as above. No acute abnormality is appreciated. Dictated by: Dictated on workstation # [id number]
[2022-07-01] MEDS ORDERED: KETOROLAC 30 MG/ML VIAL IVP ONE (19:00)
[2022-07-01 19:30] VITALS: BP 117/88
== END 2022-07-01 19:30 | disposition home or self-care (01) ==
LOC: EDUNIT# 15:46 → ER 15:49
DX: R07.89 Other chest pain (principal); Z28.310 Unvaccinated for COVID-19
CPT/HCPCS: 36415; 71045; 71275; 80053; 83735; 83874; 84484; 85025; 85379; 85610; 85730; 93005; 93041

== ENCOUNTER → 2023-05-08 | Outpatient (CLI) | payer OTHER ==
[~2023-05-08] VITALS: Ht 152.4 cm; Wt 58.6 kg
[~2023-05-08] MED LIST changes: +AMOX-355 PO; +HYDR200T78 PO; +PARO-124 PO
== END | disposition home or self-care (01) ==
LOC: PREOP 05:33
PROVIDERS: ATTEND Otolaryngology Otolaryngology/Facial Plastic Surgery
DX: Z01.818 Encounter for other preprocedural examination (principal)

== ENCOUNTER 2023-05-11 05:58 | Day surgery (SDC) | payer OTHER ==
[2023-05-11] VITALS (11 sets, daily range): BP systolic 88–120; BP diastolic 55–76
[~2023-05-11] VITALS: Ht 152 cm; Wt 58.6 kg
[~2023-05-11 05:58] MED LIST changes: -AMOX-355 PO
[2023-05-11 06:36] LABS: BASOPHILS % (AUTO) 0 % (0-10); EOSINOPHILS # (AUTO) 0.2 10^3/uL (0.0-0.3); EOSINOPHILS % (AUTO) 4 % (0-10); HEMATOCRIT 37 % (35-52); HEMOGLOBIN 12.4 g/dL (11.5-16.0); LYMPHOCYTES # (AUTO) 1.8 10^3/uL (1.0-4.0); LYMPHOCYTES % (AUTO) 32 % (12-44); MEAN CORPUSCULAR HEMOGLOBIN 29 pg (25-34); MEAN CORPUSCULAR HGB CONC 33 g/dL (32-36); MEAN CORPUSCULAR VOLUME 88 fL (80-99); MEAN PLATELET VOLUME 9.9 fL (9.0-12.2); MONOCYTES # (AUTO) 0.3 10^3/uL (0.0-1.0); MONOCYTES % (AUTO) 6 % (0-12); NEUTROPHILS # (AUTO) 3.4 10^3/uL (1.8-7.8); NEUTROPHILS % (AUTO) 58 % (42-75); PLATELET COUNT 219 10^3/uL (130-400); WHITE BLOOD COUNT 5.8 10^3/uL (4.3-11.0)
[2023-05-11 06:44] LABS: POTASSIUM 3.7 MMOL/L (3.6-5.0)
[2023-05-11 06:46] LABS: CALCIUM 8.8 MG/DL (8.5-10.1)
[2023-05-11 06:50] LABS: CREATININE SERUM 0.7 MG/DL (0.60-1.30)
[2023-05-11] MEDS ORDERED: PHENYLEPHRINE 0.5% (REGULAR) NASAL SPRAY 15 ML ONE (06:54)
[2023-05-11] MEDS ORDERED: COCAINE 4% TOPICAL SOLN 2 ML SYR ONE (06:54)
[2023-05-11] MEDS ORDERED: BSS 15 ML ONE (06:54)
[2023-05-11] MEDS ORDERED: LIDOCAINE 2% w/EPI 1:100,000 20 ML VIAL ONE (06:54)
[2023-05-11] MEDS: LACTATED RINGERS 1,000 ML 1,000 ML IV PRN ×2 (06:56→07:55)
--- NOTE | 2023-05-11 06:59 | Progress Note-Pre Operative ---
Pre-Operative Progress Note Date of Available H&P: May 11, 2023 Date H&P Reviewed: May 11, 2023 Time H&P Reviewed: 06:30 History & Physical: H&P Reviewed, Patient Examed, No changes noted Changes from last HP none Pre-Operative Diagnosis: Deviated Nasal Septum, Bilat Hyper of Inf Turbs AGNIESZKA WILLS MD May 11, 2023 06:59
[2023-05-11] MEDS ORDERED: D5 1/2NS + KCL 20 MEQ/L 1000ML 1,000 ML IV SCH (07:00)
[2023-05-11] MEDS ORDERED: PROMETHAZINE INJ 25 MG/ML VIAL IVP PRN (07:00)
[2023-05-11] MEDS ORDERED: HYDROcodone/ACETAMINOPHEN 5 MG/325 MG TABLET PO PRN (07:00)
--- NOTE | 2023-05-11 07:00 | Progress Note-Post Operative ---
Post-Operative Progess Note Surgeon (s)/Grounds Worker (s) Surgeon AGNIESZKA WILLS MD Grounds Worker n/a Pre-Operative Diagnosis Deviated Nasal Septum, Bilat Hyper of Inf Turbs Post-Operative Diagnosis same Post-Op Procedure Note Date of Procedure: May 11, 2023 Name of Procedure Performed: Nasal Septoplasty, Bialteral Partial Reduction of the INferior Turbinates Description & Findings Description and Findings: n/a Anesthesia Type get Estimated Blood Loss minimal Packing none. Specimen(s) collected/removed nasal Septum AGNIESZKA WILLS MD May 11, 2023 07:00
[2023-05-11] MEDS ORDERED: MIDAZOLAM INJ 2 MG/2 ML VIAL ONE ×2 (07:04→07:12)
[2023-05-11] MEDS ORDERED: fentaNYL INJECTION 100 MCG/2 ML VIAL ONE (07:12)
[2023-05-11] MEDS ORDERED: MIDAZOLAM INJ 2 MG/2 ML VIAL IVP ONE (07:15)
[2023-05-11] MEDS ORDERED: ONDANSETRON INJECTION 4 MG/2 ML (SDV) ONE (08:12)
[2023-05-11] MEDS ORDERED: ROCURONIUM 50 MG/5 ML VIAL IV ONE (08:12)
[2023-05-11] MEDS ORDERED: dexAMETHasone INJ 10 MG/ML 1 ML VIAL ONE (08:12)
[2023-05-11] MEDS ORDERED: NEOSTIGMINE 1 MG/1ML 10 ML VIAL ONE (08:12)
[2023-05-11] MEDS ORDERED: proPOfol INJECTION 200 MG/20 ML VIAL IV ONE (08:12)
[2023-05-11] MEDS ORDERED: LIDOCAINE PF 2% 5 ML VIAL ONE (08:12)
[2023-05-11] MEDS ORDERED: GLYCOPYRROLATE INJ 0.2 MG/ML 2 ML VIAL ONE (08:12)
[2023-05-11] MEDS ORDERED: SEVOFLURANE (ULTANE) 15 ML INHAL SOLN ONE (08:35)
[2023-05-11] MEDS ORDERED: morphine INJ 10 MG/ML 1ML (SYR OR VIAL) IVP ONE (09:00)
[2023-05-11] MEDS ORDERED: ONDANSETRON INJECTION 4 MG/2 ML (SDV) IVP PRN (09:00)
[2023-05-11] MEDS ORDERED: fentaNYL INJECTION 100 MCG/2 ML VIAL IVP ONE (09:00)
[2023-05-11] MEDS ORDERED: AMOX-355 PO (09:20)
[2023-05-11] MEDS ORDERED: ACHD5005 PO (09:20)
--- NOTE | 2023-05-11 11:37 | Anesthesia-General Post-Op ---
General Patient Condition Mental Status/LOC: Same as Preop Cardiovascular: Satisfactory Nausea/Vomiting: Absent Respiratory: Satisfactory Pain: Controlled Complications: Absent Post Op Complications Complications None Follow Up Care/Instructions Patient Instructions None needed. Anesthesia/Patient Condition Patient Condition Patient is doing well, no complaints, stable vital signs, no apparent adverse anesthesia problems. No complications reported per nursing. JOHN HIDALGO CRNA May 11, 2023 11:37
== END 2023-05-11 11:10 | disposition home or self-care (01) ==
LOC: SDC 05:58
PROVIDERS: ATTEND Otolaryngology Otolaryngology/Facial Plastic Surgery
DX: J34.2 Deviated nasal septum (principal); J34.3 Hypertrophy of nasal turbinates; J98.8 Other specified respiratory disorders; J34.89 Other specified disorders of nose and nasal sinuses; Z79.899 Other long term (current) drug therapy
CPT/HCPCS: 36415; 80048; 85025; 87081